=== PATIENT | male | born 1990 | race Caucasian/White ===

== ENCOUNTER 2017-05-02 22:16 | Emergency (ER) | payer SELFPAY ==
[~2017-05-02] VITALS: Ht 182.9 cm; Wt 74.8 kg
[2017-05-02 22:50] VITALS: BP 130/78
--- NOTE | 2017-05-02 23:40 | PHYS DOC ---
Past Medical History Past Medical History: Anxiety, Depression, Migraines Past Surgical History: Other Additional Past Surgical Histo: BILATERAL HAND SURGERY Alcohol Use: Occasionally Drug Use: None Adult General Chief Complaint Chief Complaint: ABDOMINAL PAIN HPI HPI Patient is a 27 year old who presents with nausea vomiting diarrhea. He states his initial symptoms started 3 weeks ago and he was seen 2 weeks ago at [facility] and discharged with antinausea meds. He states his symptoms had improved but they've gotten worse over the last several days today follow-up with primary care office who came some prescriptions of which she states Medicaid won't give me his anti-acid anupama until Friday. He states the pain is epigastric and it's actually a 1 out of 10. He states he's had 4-5 episodes today of vomiting and can't keep anything down. He's also had 4 episodes of nonbloody loose stools over the last 24 hours. He states he doesn't feel like he can produce a stool sample currently. Past medical history states until 3 weeks ago he's had no issues with nausea vomiting or diarrhea he denies being out of country recently. He denies being around anybody else being sick. Review of Systems Review of Systems Constitutional: Denies fever or chills [] Eyes: Denies change in visual acuity, redness, or eye pain [] HENT: Denies nasal congestion or sore throat [] Respiratory: Denies cough or shortness of breath [] Cardiovascular: No additional information not addressed in HPI [] GI: Denies abdominal pain, bloody stools, positive for nausea, vomiting, diarrhea [] : Denies dysuria or hematuria [] Musculoskeletal: Denies back pain or joint pain [] Integument: Denies rash or skin lesions [] Neurologic: Denies headache, focal weakness or sensory changes [] Endocrine: Denies polyuria or polydipsia [] Current Medications Current Medications Current Medications Medications (Trade) Dose Ordered Sig/Munira Start Time Stop Time Status Last Admin Dose Admin Hydralazine HCl (Apresoline) 10 mg 1X ONCE 05/03/17 02:00 05/03/17 02:01 UNV Ondansetron HCl (Zofran) 4 mg 1X ONCE 05/03/17 00:00 05/03/17 00:01 DC 05/02/17 23:55 4 MG Potassium Chloride (Klor-Con) 40 meq 1X ONCE 05/03/17 02:00 05/03/17 02:01 DC 05/03/17 01:54 40 MEQ Sodium Chloride 1,000 ml @ 1,000 mls/hr Q1H 05/03/17 00:00 05/03/17 00:59 DC 05/02/17 23:55 1,000 MLS/HR Allergies Allergies Allergies Coded Allergies Type Severity Reaction Last Updated Verified morphine Allergy Severe rash, throat swelling 08/09/14 Yes prednisone Allergy Intermediate vomiting 08/09/14 Yes Physical Exam Physical Exam Constitutional: Well developed, well nourished, no acute distress, non-toxic appearance. [] HENT: Normocephalic, atraumatic, bilateral external ears normal, oropharynx moist, no oral exudates, nose normal. [] Eyes: PERRLA, EOMI, conjunctiva normal, no discharge. [] Neck: Normal range of motion, no tenderness, supple, no stridor. [] Cardiovascular:Heart rate regular rhythm, no murmur [] Lungs & Thorax: Bilateral breath sounds clear to auscultation [] Abdomen: Bowel sounds normal, soft, no tenderness, no masses, no pulsatile masses. [] Skin: Warm, dry, no erythema, no rash. [] Back: No tenderness, no CVA tenderness. [] Extremities: No tenderness, no cyanosis, no clubbing, ROM intact, no edema. [] Neurologic: Alert and oriented X 3, normal motor function, normal sensory function, no focal deficits noted. [] Psychologic: Affect normal, judgement normal, mood normal. [] Current Patient Data Vital Signs Vital Signs Date Time Temp Pulse Resp B/P (MAP) Pulse Ox O2 Delivery O2 Flow Rate FiO2 05/02/17 22:50 98.0 47 20 130/78 (95) 99 Room Air 98.0 Lab Values Laboratory Tests Test 05/02/17 22:49 05/03/17 00:31 White Blood Count 4.6 x10^3/uL (4.0-11.0) Red Blood Count 5.09 x10^6/uL (4.30-5.70) Hemoglobin 14.5 g/dL (13.0-17.5) Hematocrit 42.4 % (39.0-53.0) Mean Corpuscular Volume 83 fL (79-100) Mean Corpuscular Hemoglobin 29 pg (25-35) Mean Corpuscular Hemoglobin Concent 34 g/dL (31-37) Red Cell Distribution Width 12.8 % (11.5-14.5) Platelet Count 260 x10^3/uL (140-400) Neutrophils (%) (Auto) 66 % (31-73) Lymphocytes (%) (Auto) 22 % (24-48) L Monocytes (%) (Auto) 10 % (0-9) H Eosinophils (%) (Auto) 2 % (0-3) Basophils (%) (Auto) 1 % (0-3) Neutrophils # (Auto) 3.0 x10^3uL (1.8-7.7) Lymphocytes # (Auto) 1.0 x10^3/uL (1.0-4.8) Monocytes # (Auto) 0.5 x10^3/uL (0.0-1.1) Eosinophils # (Auto) 0.1 x10^3/uL (0.0-0.7) Basophils # (Auto) 0.0 x10^3/uL (0.0-0.2) Prothrombin Time 13.1 SEC (11.7-14.0) Prothrombin Time INR 1.1 (0.8-1.1) PTT 33 SEC (24-38) Sodium Level 139 mmol/L (136-145) Potassium Level 2.9 mmol/L (3.5-5.1) *L Chloride Level 104 mmol/L (98-107) Carbon Dioxide Level 24 mmol/L (21-32) Anion Gap 11 (6-14) Blood Urea Nitrogen 11 mg/dL (8-26) Creatinine 0.7 mg/dL (0.7-1.3) Estimated GFR (Cockcroft-Gault) 135.3 Glucose Level 100 mg/dL (70-99) H Calcium Level 9.1 mg/dL (8.5-10.1) Magnesium Level 1.8 mg/dL (1.8-2.4) Total Bilirubin 0.7 mg/dL (0.2-1.0) Direct Bilirubin 0.1 mg/dL (0.0-0.2) Aspartate Amino Transferase (AST) 17 U/L (15-37) Alanine Aminotransferase (ALT) 17 U/L (16-63) Alkaline Phosphatase 96 U/L (46-116) Creatine Kinase 71 U/L (39-308) Creatine Kinase MB (Mass) < 0.5 ng/mL (0.0-3.6) Creatine Kinase MB Relative Index 0.7 % (0-4) Total Protein 7.0 g/dL (6.4-8.2) Albumin 3.8 g/dL (3.4-5.0) Lipase 111 U/L (73-393) Urine Collection Type Unknown Urine Color Yellow Urine Clarity Cloudy Urine pH 7.5 Urine Specific Garibaldi 1.020 Urine Protein Negative mg/dL (NEG-TRACE) Urine Glucose (UA) Negative mg/dL (NEG) Urine Ketones (Stick) Negative mg/dL (NEG) Urine Blood Negative (NEG) Urine Nitrite Negative (NEG) Urine Bilirubin Negative (NEG) Urine Urobilinogen Dipstick 2.0 mg/dL (0.2 mg/dL) Urine Leukocyte Esterase Negative (NEG) Urine RBC Occ /HPF (0-2) Urine WBC 1-4 /HPF (0-4) Urine Squamous Epithelial Cells Few /LPF Urine Amorphous Sediment Present /HPF Urine Bacteria 0 /HPF (0-FEW) Urine Mucus Mod /LPF Urine Opiates Screen Neg (NEG) Urine Methadone Screen Neg (NEG) Urine Barbiturates Neg (NEG) Urine Phencyclidine Screen Neg (NEG) Urine Amphetamine/Methamphetamine Neg (NEG) Urine Benzodiazepines Screen Neg (NEG) Urine Cocaine Screen Neg (NEG) Urine Cannabinoids Screen Neg (NEG) Urine Ethyl Alcohol Neg (NEG) Laboratory Tests 05/02/17 22:49 Laboratory Tests 05/02/17 22:49 EKG EKG [] Radiology/Procedures Radiology/Procedures [] Impressions: Hypokalemia Nausea vomiting Course & Med Decision Making Course & Med Decision Making Pertinent Labs and Imaging studies reviewed. (See chart for details) Patient was seen for nausea vomiting and had hypokalemia and labs. He originally was going be replaced with IV potassium but he does not want to stay. 40 mg kcl by mouth was given and then additional 20 by mouth for the next 2 days is ordered. He's also being discharged with sulfa Carafate for possible gastritis. He is not had any bowel movements while he was here. He's a follow- up with his primary care physician. Return because she given. He is agreeable to the plan and being discharged in stable condition. Dragon Disclaimer Dragon Disclaimer This electronic medical record was generated, in whole or in part, using a voice recognition dictation system. Departure Departure Impression: Primary Impression: Hypokalemia Disposition: 01 HOME, SELF-CARE Condition: STABLE Referrals: NO PCP (PCP) Patient Instructions: Hypokalemia-Brief Additional Instructions: You were seen today for nausea vomiting and your potassium level was low. I've offered you IV potassium however you do not want to stay sober going to try to replace her potassium with oral pills. Your being discharged home with 2 prescriptions, one is for potassium and the other one is for sulfa Carafate which is a medicine that would culture stomach and make you feel better. You should follow back up with your primary care physician within the next several days. Return ER for uncontrolled nausea vomiting or other concerns. Scripts Potassium Chloride (POTASSIUM CHLORIDE) 20 Meq Tablet.er 20 MEQ PO DAILY for 2 Days, #2 TAB.SR Prov: CT MELGOZA MD 05/03/17 Sucralfate (CARAFATE) 1 Gm Tablet 1 TAB PO QID, #120 TAB 1 Refill Prov: CT MELGOZA MD 05/03/17 CT MELGOZA MD May 02, 2017 23:40
[2017-05-02 23:51] LABS: BASO % 1 % (0-3); EOS % 2 % (0-3); HEMATOCRIT 42.4 % (39.0-53.0); HEMOGLOBIN 14.5 g/dL (13.0-17.5); LYMPH % 22 % (24-48); MEAN CORPUSCULAR HEMOGLOBIN 29 pg (25-35); MEAN CORPUSCULAR HGB CONC 34 g/dL (31-37); MEAN CORPUSCULAR VOLUME 83 fL (79-100); MONO % 10 % (0-9); NEUT % 66 % (31-73); PLATELET COUNT 260 x10^3/uL (140-400); RED BLOOD COUNT 5.09 x10^6/uL (4.30-5.70); RED CELL DISTRIBUTION WIDTH 12.8 % (11.5-14.5); WHITE BLOOD COUNT 4.6 x10^3/uL (4.0-11.0)
[2017-05-03] MEDS ORDERED: IV NORMAL SALINE 1000ML BAG 1,000 ML IV SCH
[2017-05-03] MEDS ORDERED: ONDANSETRON PF 4 MG/2 ML VIAL. IV ONE
[2017-05-03 00:01] LABS: INR 1.1 (0.8-1.1); PROTHROMBIN TIME PATIENT 13.1 SEC (11.7-14.0)
[2017-05-03 00:08] LABS: ALBUMIN 3.8 g/dL (3.4-5.0); CALCIUM 9.1 mg/dL (8.5-10.1); CREATININE 0.7 mg/dL (0.7-1.3); DIRECT BILIRUBIN 0.1 mg/dL (0.0-0.2); GFR 135.3; TOTAL BILIRUBIN 0.7 mg/dL (0.2-1.0)
[2017-05-03 00:17] LABS: CREATINE KINASE 71 U/L (39-308)
[2017-05-03 00:18] LABS: CKMB MASS < 0.5 ng/mL (0.0-3.6); POTASSIUM 2.9 mmol/L (3.5-5.1)
[2017-05-03 00:47] LABS: BILIRUBIN,URINE NEGATIVE (NEG); GLUCOSE,URINE NEGATIVE (NEG); NITRITE,URINE NEGATIVE (NEG); PH,URINE 7.5; PROTEIN,URINE NEGATIVE (NEG-TRACE)
[2017-05-03 00:56] LABS: BARBITURATES NEG (NEG); BENZODIAZEPINES NEG (NEG); CANNABINOIDS NEG (NEG); COCAINE NEG (NEG); METHADONE NEG (NEG); OPIATES NEG (NEG); PHENCYCLIDINE NEG (NEG)
[2017-05-03 01:19] LABS: BACTERIA,URINE 0 /HPF (0-FEW); RBC,URINE OCC /HPF (0-2); SQUAMOUS EPITHELIAL CELL,UR FEW /LPF
[2017-05-03] MEDS ORDERED: POTASSIUM CHLORIDE 10MEQ 100 ML IV SCH (01:30)
[2017-05-03] MEDS ORDERED: SUCR1TAB35 PO (01:35)
[2017-05-03] MEDS ORDERED: POTA20TA82 PO (01:35)
[2017-05-03] MEDS ORDERED: hydrALAZINE 20 MG/ML VIAL. IVP ONE (02:00)
[2017-05-03] MEDS ORDERED: POTASSIUM CHLORIDE 20 MEQ TABLET.ER. PO ONE (02:00)
== END 2017-05-03 02:05 | disposition home or self-care (01) ==
LOC: ER 22:54
DX: E87.6 Hypokalemia (principal); R10.13 Epigastric pain; R11.2 Nausea with vomiting, unspecified; F32.9 Major depressive disorder, single episode, unspecified; F41.9 Anxiety disorder, unspecified; Z88.5 Allergy status to narcotic agent; Z88.8 Allergy status to other drugs, medicaments and biological substances
CPT/HCPCS: 36415; 80048; 80076; 80307; 81001; 82553; 83690; 83735; 85025; 85610; 85730; 96365; 96375; 99284; J2405; J7030; G0479

== ENCOUNTER 2017-05-05 10:48 | Emergency (ER) | payer MEDICAID ==
[~2017-05-05] VITALS: Ht 182.9 cm; Wt 74.8 kg
[~2017-05-05 10:48] MED LIST: POTA20TA82 PO; SUCR1TAB35 PO
[2017-05-05 10:57] VITALS: BP 129/76
[2017-05-05] MEDS ORDERED: IV NORMAL SALINE 1000ML BAG 1,000 ML IV ONE (11:00)
[2017-05-05] MEDS ORDERED: ONDANSETRON PF 4 MG/2 ML VIAL. IV ONE (11:00)
[2017-05-05 11:20] LABS: BASO # 0.1 x10^3/uL (0.0-0.2); BASO % 1 % (0-3); EOS % 1 % (0-3); HEMATOCRIT 43.2 % (39.0-53.0); HEMOGLOBIN 15.1 g/dL (13.0-17.5); LYMPH # 1.1 x10^3/uL (1.0-4.8); LYMPH % 29 % (24-48); MEAN CORPUSCULAR HEMOGLOBIN 29 pg (25-35); MEAN CORPUSCULAR HGB CONC 35 g/dL (31-37); MEAN CORPUSCULAR VOLUME 82 fL (79-100); MONO % 14 % (0-9); NEUT % 55 % (31-73); PLATELET COUNT 245 x10^3/uL (140-400); RED BLOOD COUNT 5.28 x10^6/uL (4.30-5.70); RED CELL DISTRIBUTION WIDTH 12.8 % (11.5-14.5)
[2017-05-05 11:28] LABS: CALCIUM 9.1 mg/dL (8.5-10.1); CREATININE 0.9 mg/dL (0.7-1.3); GFR 101.2; POTASSIUM 3.9 mmol/L (3.5-5.1)
--- NOTE | 2017-05-05 11:29 | PHYS DOC ---
Past Medical History Past Medical History: Anxiety, Depression, Migraines Past Surgical History: Other Additional Past Surgical Histo: BILATERAL HAND SURGERY Alcohol Use: Occasionally Drug Use: None Adult General Chief Complaint Chief Complaint: NAUSEA/VOMITING/DIARRHA HPI HPI 27-year-old male presenting to the emergency department today with nausea vomiting and diarrhea. This is been present for proximally 4-5 days. It is recurrent after having a similar episode about 2 weeks ago. He denies cannabis use. He denies a history of chronic nausea and vomiting. He denies any recent suspicious food intake. He denies blood in his stools. He reports that he was seen on Friday and had a low potassium for which he received IV potassium repletion and oral potassium to go home with. Review of systems is negative for fevers chills. He denies his pain to be migrating. He denies chest pain or shortness of breath. All other review of systems is negative unless otherwise noted in history of present illness. ED course: 27-year-old male presenting the emergency department today with nausea and vomiting. Triage vital signs afebrile with a normal heart rate. Pertinent physical examination findings show soft nontender abdomen. Negative McBurney's point. Negative Hicks sign. Mucous membranes are moist. IV fluids initiated. Blood work sent. Repeat abdominal exam continues show soft and nontender abdomen. The patient was then discharged home in stable condition to follow up with their primary care physician over the next 2-3 days. They were to return if their symptoms worsened or if they were concerned for any reason. [id number] discharge instructions and return precautions were given. Patient' s questions were answered to their satisfaction. Patient is comfortable plan. Review of Systems Review of Systems SEE ABOVE. Current Medications Current Medications Current Medications Medications (Trade) Dose Ordered Sig/Munira Start Time Stop Time Status Last Admin Dose Admin Ondansetron HCl (Zofran) 4 mg 1X ONCE 05/05/17 11:00 05/05/17 11:01 DC 05/05/17 11:10 4 MG Sodium Chloride 1,000 ml @ 1,000 mls/hr 1X ONCE 05/05/17 11:00 05/05/17 11:59 DC 05/05/17 11:11 1,000 MLS/HR Allergies Allergies Allergies Coded Allergies Type Severity Reaction Last Updated Verified morphine Allergy Severe rash, throat swelling 08/09/14 Yes prednisone Allergy Intermediate vomiting 08/09/14 Yes Physical Exam Physical Exam SEE ABOVE Constitutional: Well developed, well nourished, no acute distress, non-toxic appearance. [] HENT: Normocephalic, atraumatic, bilateral external ears normal, oropharynx moist, no oral exudates, nose normal. [] Eyes: PERRLA, EOMI, conjunctiva normal, no discharge. [] Neck: Normal range of motion, no tenderness, supple, no stridor. [] Cardiovascular:Heart rate regular rhythm, no murmur [] Lungs & Thorax: Bilateral breath sounds clear to auscultation [] Abdomen: Bowel sounds normal, soft, no tenderness, no masses, no pulsatile masses. [] Skin: Warm, dry, no erythema, no rash. [] Back: No tenderness, no CVA tenderness. [] Extremities: No tenderness, no cyanosis, no clubbing, ROM intact, no edema. [] Neurologic: Alert and oriented X 3, normal motor function, normal sensory function, no focal deficits noted. [] Psychologic: Affect normal, judgement normal, mood normal. [] Current Patient Data Vital Signs Vital Signs Date Time Temp Pulse Resp B/P (MAP) Pulse Ox O2 Delivery O2 Flow Rate FiO2 05/05/17 10:57 97.9 70 20 129/76 (93) 96 Room Air 97.9 Lab Values Laboratory Tests Test 05/05/17 11:05 White Blood Count 4.0 x10^3/uL (4.0-11.0) Red Blood Count 5.28 x10^6/uL (4.30-5.70) Hemoglobin 15.1 g/dL (13.0-17.5) Hematocrit 43.2 % (39.0-53.0) Mean Corpuscular Volume 82 fL (79-100) Mean Corpuscular Hemoglobin 29 pg (25-35) Mean Corpuscular Hemoglobin Concent 35 g/dL (31-37) Red Cell Distribution Width 12.8 % (11.5-14.5) Platelet Count 245 x10^3/uL (140-400) Neutrophils (%) (Auto) 55 % (31-73) Lymphocytes (%) (Auto) 29 % (24-48) Monocytes (%) (Auto) 14 % (0-9) H Eosinophils (%) (Auto) 1 % (0-3) Basophils (%) (Auto) 1 % (0-3) Neutrophils # (Auto) 2.2 x10^3uL (1.8-7.7) Lymphocytes # (Auto) 1.1 x10^3/uL (1.0-4.8) Monocytes # (Auto) 0.6 x10^3/uL (0.0-1.1) Eosinophils # (Auto) 0.0 x10^3/uL (0.0-0.7) Basophils # (Auto) 0.1 x10^3/uL (0.0-0.2) Sodium Level 140 mmol/L (136-145) Potassium Level 3.9 mmol/L (3.5-5.1) Chloride Level 102 mmol/L (98-107) Carbon Dioxide Level 27 mmol/L (21-32) Anion Gap 11 (6-14) Blood Urea Nitrogen 12 mg/dL (8-26) Creatinine 0.9 mg/dL (0.7-1.3) Estimated GFR (Cockcroft-Gault) 101.2 BUN/Creatinine Ratio 13 (6-20) Glucose Level 89 mg/dL (70-99) Calcium Level 9.1 mg/dL (8.5-10.1) Total Bilirubin 0.5 mg/dL (0.2-1.0) Aspartate Amino Transferase (AST) 17 U/L (15-37) Alanine Aminotransferase (ALT) 26 U/L (16-63) Alkaline Phosphatase 107 U/L (46-116) Total Protein 7.7 g/dL (6.4-8.2) Albumin 4.0 g/dL (3.4-5.0) Albumin/Globulin Ratio 1.1 (1.0-1.7) Lipase 118 U/L (73-393) Laboratory Tests 05/05/17 11:05 Laboratory Tests 05/05/17 11:05 EKG EKG [] Radiology/Procedures Radiology/Procedures [] Course & Med Decision Making Course & Med Decision Making Pertinent Labs and Imaging studies reviewed. (See chart for details) [] Dragon Disclaimer Dragon Disclaimer This electronic medical record was generated, in whole or in part, using a voice recognition dictation system. Departure Departure Impression: Primary Impression: Nausea vomiting and diarrhea Disposition: HOME, SELF-CARE Condition: STABLE Referrals: NO PCP (PCP) JENAE HAGEN MD Patient Instructions: Nausea and Vomiting Additional Instructions: Thank you for allowing us to participate in your care today. Followup with your primary care physician in 3 days if your symptoms do not improve. Call your Primary Doctor tomorrow and inform them of your visit today. If you do not have a primary care provider you can ask for a list of our primary care providers. Return to the emergency department you have any new or concerning findings. This should be evaluated by the primary care physician and any necessary consulting services for continued management within a few days after discharge. Return to emergency room if you have any new or concerning symptoms including but not limited to fever, chills, nausea, vomiting, intractable pain, any new rashes, chest pain, shortness of air, uncontrolled bleeding, difficulty breathing, and/or vision loss. Scripts Dicyclomine Hcl (BENTYL) 10 Mg Capsule 10 MG PO TID PRN Y for PAIN, #8 TAB 0 Refills Prov: MICHELLE ALBERTO MD 05/05/17 Metoclopramide Hcl (REGLAN) 10 Mg Tablet 1 TAB PO PRN BID Y for NAUSEA, #7 TAB 0 Refills Prov: MICHELLE ALBERTO MD 05/05/17 MICHELLE ALBERTO MD May 05, 2017 11:29
[2017-05-05 11:34] LABS: ALBUMIN/GLOBULIN RATIO 1.1 (1.0-1.7); TOTAL BILIRUBIN 0.5 mg/dL (0.2-1.0); TOTAL PROTEIN 7.7 g/dL (6.4-8.2)
[2017-05-05] MEDS ORDERED: METO10TA81 PO (11:41)
[2017-05-05] MEDS ORDERED: DICY10CA53 PO (11:42)
== END 2017-05-05 12:03 | disposition home or self-care (01) ==
LOC: ER 10:48
DX: R11.2 Nausea with vomiting, unspecified (principal); R19.7 Diarrhea, unspecified; G43.909 Migraine, unspecified, not intractable, without status migrainosus; Z88.5 Allergy status to narcotic agent; Z88.8 Allergy status to other drugs, medicaments and biological substances
CPT/HCPCS: 36415; 80053; 83690; 85025; 96361; 96374; 99284; J2405; J7030

== ENCOUNTER 2021-04-06 08:05 | Emergency (ER) | payer BC, MEDICAID ==
[~2021-04-06] VITALS: Ht 182.9 cm; Wt 81.8 kg
[~2021-04-06 08:05] MED LIST changes: +DICY10CA53 PO; +METO10TA81 PO; +POTA20TA4 PO; -POTA20TA82 PO
--- NOTE | 2021-04-06 08:40 | ED.ADGEN ---
Past Medical History Past Medical History: Anxiety, Depression, Migraines Past Surgical History: Other Additional Past Surgical Histo: BILATERAL HAND SURGERY Smoking Status: Former Smoker Alcohol Use: None Drug Use: None General Adult EDM: Chief Complaint: HEADACHE HPI: HPI: Patient is 31-year-old male with past medical history of migraines who presents to the emergency room complaining of a migraine that started last night. Patient states he typically is able to take Excedrin and will go away. He states that this is the first time in several years he has had a migraine this bad. He did try to take Excedrin without any relief. Headache is frontal in nature with associated associated photophobia and nausea. He denies any vomiting, fever, chills, cough, URI symptoms. He states it does feel like his typical migraine just worse than usual. Review of Systems: Review of Systems: Complete ROS is negative unless otherwise documented in HPI Current Medications: Current Medications Medications (Trade) Dose Ordered Sig/Munira Start Time Stop Time Status Last Admin Dose Admin Dexamethasone Sodium Phosphate (Decadron) 10 mg 1X ONCE 04/06/21 08:45 04/06/21 08:46 DC 04/06/21 08:46 10 MG Diphenhydramine HCl (Benadryl) 25 mg 1X ONCE 04/06/21 08:45 04/06/21 08:46 DC 04/06/21 08:47 25 MG Prochlorperazine Edisylate (Compazine) 10 mg 1X ONCE 04/06/21 08:45 04/06/21 08:46 DC 04/06/21 08:47 10 MG Sodium Chloride 1,000 ml @ 0 mls/hr Q0M ONCE 04/06/21 08:45 04/06/21 08:46 DC 04/06/21 08:46 999 MLS/HR Allergies: Allergies: Allergies Coded Allergies Type Severity Reaction Last Updated Verified morphine Allergy Severe rash, throat swelling 08/09/14 Yes prednisone Allergy Intermediate vomiting 08/09/14 Yes Physical Exam: PE: General: Awake, alert, NAD. Well Nourished, well hydrated. Cooperative HEENT: Atraumatic, EOMI, PERRL, airway patent, moist oral mucosa Neck: Supple, trachea midline Respiratory: CTA bilaterally, normal effort, no wheezing/crackles CV: RRR, no murmur, cap refill <2 GI: Soft, nondistended, nontender, no masses MSK: No obvious deformities Skin: Warm, dry, intact Neuro: A&O x3, speech NL, 5/5 strength in BUE/BLE distally and proximally, CN 2- 12 intact, cerebellar testing normal Psych: Normal affect, normal mood, not suicidal or homicidal Current Patient Data: Vital Signs: Vital Signs Date Time Temp Pulse Resp B/P (MAP) Pulse Ox O2 Delivery O2 Flow Rate FiO2 04/06/21 08:15 98.4 83 16 134/78 (93) 99 Room Air 98.4 EKG: EKG: [] Heart Score: C/O Chest Pain: N/A Risk Factors: Risk Factors: DM, Current or recent (<one month) smoker, HTN, HLP, family history of CAD, obesity. Risk Scores: Score 0 - 3: 2.5% MACE over next 6 weeks - Discharge Home Score 4 - 6: 20.3% MACE over next 6 weeks - Admit for Clinical Observation Score 7 - 10: 72.7% MACE over next 6 weeks - Early Invasive Strategies Radiology/Procedures: Radiology/Procedures: [] Course & Med Decision Making: Course & Med Decision Making Pertinent Labs and Imaging studies reviewed. (See chart for details) Patient is a 31yo male who presents to the emergency room complaining of a migraine. Patient has a history of migraines and this is typical of her normal migraine. Patient did not have sudden onset of severe headache that would be concerning for subarachnoid hemorrhage. Patient does not have any neurologic deficits on exam. Patient will be given a migraine cocktail. On reevaluation, headache has resolved. Patient's test results and vitals while in the ED were fully reviewed and discussed with the patient. Patient is stable and at this time does not need admission to the hospital. We have discussed strict return precautions and the importance of following up with their Primary Care Physician. Patient stated understanding and was given an opportunity to ask any questions. Patient is in agreement with plan. Vira Disclaimer: Vira Disclaimer: This electronic medical record was generated, in whole or in part, using a voice recognition dictation system. Departure Departure Impression: Primary Impression: Migraine Disposition: HOME / SELF CARE / HOMELESS Condition: STABLE Referrals: NO PCP (PCP) Patient Instructions: Migraine Headache DEMARIO SZYMANSKI MD Apr 06, 2021 08:40
[2021-04-06] MEDS ORDERED: DEXAMETHASONE SOD PHOS 4 MG/ML VIAL IVP ONE (08:45)
[2021-04-06] MEDS ORDERED: PROCHLORPERAZINE 10 MG/2 ML VIAL. IV ONE (08:45)
[2021-04-06] MEDS ORDERED: diphenhydrAMINE HCL 25 MG CAPSULE PO ONE (08:45)
[2021-04-06] MEDS ORDERED: IV NORMAL SALINE 1000ML BAG 1,000 ML IV ONE (08:45)
[2021-04-06 09:11] VITALS: BP 116/63
== END 2021-04-06 09:59 | disposition home or self-care (01) ==
LOC: ER 08:05
DX: G43.909 Migraine, unspecified, not intractable, without status migrainosus (principal); F41.9 Anxiety disorder, unspecified; F32.9 Major depressive disorder, single episode, unspecified; Z88.5 Allergy status to narcotic agent; Z88.8 Allergy status to other drugs, medicaments and biological substances
CPT/HCPCS: 96361; 96374; 96375; 99284; J0780; J1100; J7030; Q0163